=== PATIENT | male | born 1975 | race Caucasian/White ===

== ENCOUNTER → 2016-10-06 | Outpatient (CLI) | payer BC ==
[2016-10-06 10:41] LABS: ALBUMIN 4.4 GM/DL (3.2-5.2); ALBUMIN/GLOBULIN RATIO 1.42 (1.00-1.93); ALKALINE PHOSPHATASE 71 U/L (45-117); ALT/SGPT 115 U/L (12-78); ANION GAP 7 MEQ/L (8-16); AST/SGOT 44 U/L (15-37); BILIRUBIN,TOTAL 0.7 MG/DL (0.2-1.0); BLOOD UREA NITROGEN 16 MG/DL (7-18); CALCIUM LEVEL 9.3 MG/DL (8.5-10.1); CARBON DIOXIDE LEVEL 31 MEQ/L (21-32); CHLORIDE LEVEL 104 MEQ/L (98-107); CHOLESTEROL LEVEL 138 MG/DL (<200); GLOMERULAR FILTRATION RATE > 60.0 (>60); GLUCOSE, FASTING 88 MG/DL (70-105); POTASSIUM SERUM 4.2 MEQ/L (3.5-5.1); SODIUM LEVEL 142 MEQ/L (136-145); TOTAL PROTEIN 7.5 GM/DL (6.4-8.2); TRIGLYCERIDES LEVEL 120 MG/DL (<150)
== END ==
LOC: M WUC 08:24
PROVIDERS: ATTEND Family Medicine Addiction Medicine
DX: I10 Essential (primary) hypertension (principal)

== ENCOUNTER 2016-11-02 16:03 | Emergency (ER) | payer OTHER ==
[~2016-11-02] VITALS: Ht 193 cm; Wt 118.8 kg
[2016-11-02] MEDS ORDERED: AMLODIPINE (16:22)
[2016-11-02] MEDS ORDERED: ACETAMINOPHEN 325 MG TAB PO ONE (16:45)
[2016-11-02] MEDS ORDERED: KETOROLAC 30 MG/ML VIAL (J1885) IV ONE (16:45)
[2016-11-02 17:13] LABS: BASO % 0.4 % (0.0-1.0); EOS # 0.2 K/mm3 (0.0-0.50); EOS % 1.8 % (0.0-3.0); LARGE UNSTAINED CELL # 0.2 K/mm3 (0.0-0.4); LARGE UNSTAINED CELL % 2.9 % (0.0-4.0); LYMPH # 1.8 K/mm3 (1.5-4.5); LYMPH % 21.6 % (24.0-44.0); MEAN CORPUSCULAR HEMOGLOBIN 30.3 pg (27.0-33.0); MEAN CORPUSCULAR HGB CONC 34.2 g/dl (32.0-36.5); MEAN CORPUSCULAR VOLUME 88.6 fl (80.0-96.0); MONO # 0.5 K/mm3 (0.0-0.8); MONO % 6.4 % (0.0-5.0); NEUTROPHILS # 5.5 K/mm3 (1.8-7.7); NEUTROPHILS % 66.9 % (36.0-66.0); PLATELET COUNT, AUTOMATED 283 k/mm3 (150-450); RED CELL DISTRIBUTION WIDTH 12.9 % (11.5-14.5); WHITE BLOOD COUNT 8.3 K/mm3 (4.0-10.0)
[2016-11-02 17:40] LABS: ALBUMIN 4.1 GM/DL (3.2-5.2); ALBUMIN/GLOBULIN RATIO 1.21 (1.00-1.93); ALKALINE PHOSPHATASE 75 U/L (45-117); ALT/SGPT 132 U/L (12-78); ANION GAP 7 MEQ/L (8-16); AST/SGOT 43 U/L (15-37); BILIRUBIN,DIRECT 0.2 MG/DL (0.0-0.2); BILIRUBIN,TOTAL 0.6 MG/DL (0.2-1.0); BLOOD UREA NITROGEN 20 MG/DL (7-18); CALCIUM LEVEL 9.1 MG/DL (8.5-10.1); CARBON DIOXIDE LEVEL 28 MEQ/L (21-32); CHLORIDE LEVEL 107 MEQ/L (98-107); CREATININE FOR GFR 0.89 MG/DL (0.70-1.30); GLOMERULAR FILTRATION RATE > 60.0 (>60); GLUCOSE, FASTING 81 MG/DL (70-105); POTASSIUM SERUM 3.8 MEQ/L (3.5-5.1); SODIUM LEVEL 142 MEQ/L (136-145); TOTAL PROTEIN 7.5 GM/DL (6.4-8.2)
[2016-11-02] MEDS ORDERED: MORPHINE 4 MG/ML 1ML SYRINGE As Ordered ONE (18:10)
[2016-11-02] MEDS ORDERED: ONDANSETRON 4MG/2ML VIAL (J2405) As Ordered ONE (18:10)
[2016-11-02] MEDS ORDERED: ONDANSETRON 4MG/2ML VIAL (J2405) IV ONE (18:15)
[2016-11-02] MEDS ORDERED: NS 1,000 ML IV ONE (18:15)
[2016-11-02] MEDS ORDERED: MORPHINE 4 MG/ML 1ML SYRINGE IV ONE (18:15)
[2016-11-02] MEDS ORDERED: ISOVUE-370 76% 100ML VIAL (Q9967) As Ordered ONE (18:15)
[2016-11-02] MEDS ORDERED: NORCOTAB PO (19:03)
[2016-11-02] MEDS ORDERED: IBUP80TA PO (19:03)
--- NOTE | 2016-11-02 19:14 | REP ---
Anterior abdominal wall ultrasound: History: Question umbilical hernia. Findings: Scanning at the level of the umbilicus demonstrates a defect in the anterior abdominal wall measuring approximately 1.25 cm. There is echogenic inflamed appearing abdominal fat with in the subcutaneous region in the anterior abdominal wall. There is an area of sonographically complex of material within the umbilical hernia which may be non-peristalsing bowel. No blood flow could be detected on Doppler. Impression: Findings consistent with incarcerated umbilical hernia containing inflamed appearing abdominal fat and what appears to be a small loop of non-peristalsing bowel. This could not be reduced with transducer pressure . No Doppler flow could be observed. Signed by Toro Kapoor MD 11/02/2016 08:47 P
[2016-11-02 19:15] VITALS: BP 147/91
--- NOTE | 2016-11-02 19:28 | REP ---
CT abdomen pelvis with IV but without oral contrast: History: Umbilical pain. Findings: Preliminary digital portfolio specialist radiograph demonstrates a normal bowel gas pattern. There is an artifactual structure likely a pillow overlying the abdomen. The lung bases are clear. There is mild diffuse fatty infiltration of the liver. Some fat sparing is seen in the liver parenchyma adjacent the gallbladder. No adrenal lesion is seen. Spleen is unremarkable. Pancreas has a normal appearance. The kidneys enhance symmetrically and are morphologically intact. No retroperitoneal mass or adenopathy is seen. Small and large intestinal bowel loops are normal in the abdomen and pelvis. Seminal vesicles, urinary bladder and prostate are unremarkable. There is a 2.0 x 1.4 cm anterior abdominal wall defect at the umbilicus. This contains a small quantity of fat. Within the fat in the umbilical hernia there is evidence of edema or inflammation. There is slight streakiness in the subcutaneous fat adjacent to the umbilicus. There is no evidence of bowel involvement. No other abdominal wall defect is seen. No pelvic mass or adenopathy is observed. Bone window settings demonstrate no bony destructive lesion. Impression: Very small umbilical abdomen wall defect 2 cm in greatest diameter. The abdominal fat within this appears inflamed and there is some subcutaneous inflammation or edema superior and inferior to the umbilicus. Incarcerated hernia versus omphalitis. No bowel involvement. Signed by Toro Kapoor MD 11/02/2016 08:48 P
== END 2016-11-02 19:28 | disposition home or self-care (01) ==
LOC: M ED 17:36
DX: K40.30 Unilateral inguinal hernia, with obstruction, without gangrene, not specified as recurrent (principal); R10.9 Unspecified abdominal pain; I10 Essential (primary) hypertension; G47.33 Obstructive sleep apnea (adult) (pediatric); D86.0 Sarcoidosis of lung
CPT/HCPCS: 74177; 76705; 80048; 80076; 83605; 83690; 85025; 96374; 96375; 99282; J1885; J2405; Q9967

== ENCOUNTER → 2017-01-09 | Day surgery (SDC) | payer OTHER ==
[~2017-01-09] VITALS: Ht 193 cm; Wt 117.9 kg
[~2017-01-09] MED LIST: AMLO10CA PO; AMLO10TA2 PO; AMLODIPINE; BUPIVACAINE/EPIN 0.25% 30 ML VIAL As Ordered ONE; GLYCOPYRROLATE INJ 0.2 MG/ML 2 ML VIAL As Ordered ONE; HYDROmorphone HCL 1 MG/ML SYRINGE (J1170) IV PRN; IBUP80TA PO; KETOROLAC 60 MG/2 ML VIAL (J1885) As Ordered ONE; LIDOCAINE 2% INJ 100 MG/5 ML SDV (FOR ANES.) As Ordered ONE; LR 1,000 ML IV ONE; LR 1,000 ML IV SCH; MIDAZOLAM INJ 2 MG/2 ML VIAL (J2250) As Ordered ONE; MORPHINE 2 MG/ML 1ML SYRINGE IV PRN; NEOSTIGMINE 1MG/ML 5 ML SYRINGE (J2710) As Ordered ONE; NORCO, ANEXSIA 5/325MG TABLET (HYDROcodone/ACETAMINOPHEN) PO PRN; NORCOTAB PO; ONDANSETRON 4MG/2ML VIAL (J2405) As Ordered ONE; ONDANSETRON 4MG/2ML VIAL (J2405) IV PRN; PERCOCET 5MG/325MG TAB As Ordered ONE; PROPOFOL 200 MG/20 ML VIAL As Ordered ONE; ROCURONIUM BROMIDE 50 MG/5 ML VIAL/SYRINGE As Ordered ONE; ceFAZolin SOD 1 GM in D5W MINI-BAG PLUS 50 ML IV ONE; dexameTHASONE 4 MG/ML 1ML VIAL (J1100) As Ordered ONE; fentaNYL 100 MCG/2 ML INJECTION (J3010) IV PRN; fentaNYL 250 MCG/5 ML INJECTION (J3010) As Ordered ONE
--- NOTE | 2017-01-09 13:42 | RO ---
DATE OF PROCEDURE: 01/09/2017 PREOPERATIVE DIAGNOSIS: Symptomatic umbilical hernia. POSTPROCEDURE DIAGNOSIS: Symptomatic umbilical hernia. PROCEDURE: Umbilical hernia repair. SURGEON: Cas Arzate MD ANESTHESIA: General endotracheal anesthesia ESTIMATED BLOOD LOSS: Minimal. Fluids crystalloid. DESCRIPTION OF PROCEDURE: The patient was brought to the operating room and was given general anesthesia. After adequate anesthesia and preoperative antibiotics were given, the patient was prepped and draped in the sterile fashion. Next, a periumbilical incision was made with skin knife. Blunt dissection was carried down to the hernia itself. The hernia was dissected off the posterior aspect of the umbilicus and the hernia sac was entered. There was some preperitoneal fat within the hernia sac itself. No mass present and the peritoneum was not entered. The fascial defect was approximately 1 cm, at most 1.5 cm in size, which had nice strong fascia circumferentially. I felt that this could be closed primarily and this was closed with two [id number] #0 Ethilon sutures and a single interrupted #0 Ethilon suture between these two. The posterior aspect of the umbilicus was tacked down to the fascia with #3-0 Vicryl. #3-0 Vicryl was used to close the dermis and #4-0 Vicryl was used to approximate the skin. Steri-Strips and dry sterile dressing were applied. The patient was awakened, extubated, brought to the recovery room awake, alert, hemodynamically stable. Sponge and needle counts correct times two.
[2017-01-09] MEDS: PERCOCET 5MG/325MG TAB PO PRN ×2 (13:54→14:55)
[2017-01-09 16:30] VITALS: BP 131/77
== END ==
LOC: M SDC 10:00
PROVIDERS: ATTEND Surgery
DX: K42.9 Umbilical hernia without obstruction or gangrene (principal); I10 Essential (primary) hypertension; R06.2 Wheezing; D86.0 Sarcoidosis of lung; G47.30 Sleep apnea, unspecified; Z87.891 Personal history of nicotine dependence; Z79.899 Other long term (current) drug therapy
CPT/HCPCS: 49585; J0690; J1100; J1170; J1885; J2250; J2405; J2710; J3010

== ENCOUNTER → 2017-06-06 | Outpatient (REF) | payer BC ==
[~2017-06-06] MED LIST changes: -BUPIVACAINE/EPIN 0.25% 30 ML VIAL As Ordered ONE; -GLYCOPYRROLATE INJ 0.2 MG/ML 2 ML VIAL As Ordered ONE; -HYDROmorphone HCL 1 MG/ML SYRINGE (J1170) IV PRN; -KETOROLAC 60 MG/2 ML VIAL (J1885) As Ordered ONE; -LIDOCAINE 2% INJ 100 MG/5 ML SDV (FOR ANES.) As Ordered ONE; -LR 1,000 ML IV ONE; -LR 1,000 ML IV SCH; -MIDAZOLAM INJ 2 MG/2 ML VIAL (J2250) As Ordered ONE; -MORPHINE 2 MG/ML 1ML SYRINGE IV PRN; -NEOSTIGMINE 1MG/ML 5 ML SYRINGE (J2710) As Ordered ONE; -NORCO, ANEXSIA 5/325MG TABLET (HYDROcodone/ACETAMINOPHEN) PO PRN; -ONDANSETRON 4MG/2ML VIAL (J2405) As Ordered ONE; -ONDANSETRON 4MG/2ML VIAL (J2405) IV PRN; -PERCOCET 5MG/325MG TAB As Ordered ONE; -PROPOFOL 200 MG/20 ML VIAL As Ordered ONE; -ROCURONIUM BROMIDE 50 MG/5 ML VIAL/SYRINGE As Ordered ONE; -ceFAZolin SOD 1 GM in D5W MINI-BAG PLUS 50 ML IV ONE; -dexameTHASONE 4 MG/ML 1ML VIAL (J1100) As Ordered ONE; -fentaNYL 100 MCG/2 ML INJECTION (J3010) IV PRN; -fentaNYL 250 MCG/5 ML INJECTION (J3010) As Ordered ONE
[2017-06-06 12:33] LABS: ALBUMIN 4.6 GM/DL (3.2-5.2); ALBUMIN/GLOBULIN RATIO 1.53 (1.00-1.93); ALKALINE PHOSPHATASE 66 U/L (45-117); ALT/SGPT 61 U/L (12-78); ANION GAP 8 MEQ/L (8-16); AST/SGOT 24 U/L (7-37); BILIRUBIN,TOTAL 0.6 MG/DL (0.2-1.0); BLOOD UREA NITROGEN 26 MG/DL (7-18); CALCIUM LEVEL 8.8 MG/DL (8.5-10.1); CARBON DIOXIDE LEVEL 25 MEQ/L (21-32); CHLORIDE LEVEL 109 MEQ/L (98-107); CHOLESTEROL LEVEL 119 MG/DL (<200); CREATININE FOR GFR 0.83 MG/DL (0.70-1.30); GLOMERULAR FILTRATION RATE > 60.0 (>60); GLUCOSE, FASTING 98 MG/DL (70-105); POTASSIUM SERUM 4.3 MEQ/L (3.5-5.1); SODIUM LEVEL 142 MEQ/L (136-145); TOTAL PROTEIN 7.6 GM/DL (6.4-8.2); TRIGLYCERIDES LEVEL 95 MG/DL (<150)
== END ==
LOC: M LAB REF 11:58
PROVIDERS: ATTEND Family Medicine Addiction Medicine
DX: I10 Essential (primary) hypertension (principal)

== ENCOUNTER 2018-11-08 19:09 | Emergency (ER) | payer BC ==
[~2018-11-08] VITALS: Ht 193 cm; Wt 115.9 kg
[~2018-11-08 19:09] MED LIST changes: -AMLO10TA2 PO; +AMLO10TA5 PO; +HYDR-3715 PO; -NORCOTAB PO
[2018-11-08] MEDS ORDERED: ONDANSETRON 4 MG ORAL DISINTEGRATING TAB (Q0162 PER 1MG) As Ordered ONE (19:48)
[2018-11-08] MEDS ORDERED: ONDANSETRON 4 MG ORAL DISINTEGRATING TAB (Q0162 PER 1MG) PO ONE (20:00)
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
[2018-11-08] MEDS ORDERED: ONDA4TAB6 PO (21:32)
[2018-11-08 21:37] VITALS: BP 132/98
[2018-11-08] MEDS ORDERED: IBUPROFEN 600 MG TAB PO ONE (21:45)
[2018-11-08] MEDS ORDERED: ACETAMINOPHEN TAB 650MG DOSE (2X325MG) PO ONE (21:45)
== END 2018-11-08 22:00 | disposition home or self-care (01) ==
LOC: M ED 19:09
DX: S00.83XA Contusion of other part of head, initial encounter (principal); S02.2XXA Fracture of nasal bones, initial encounter for closed fracture; X58.XXXA Exposure to other specified factors, initial encounter; Y92.099 Unspecified place in other non-institutional residence as the place of occurrence of the external cause; Y93.9 Activity, unspecified; Y99.9 Unspecified external cause status; Z87.891 Personal history of nicotine dependence; Z79.899 Other long term (current) drug therapy
CPT/HCPCS: 70450; 70486; 99283; Q0162

== ENCOUNTER → 2019-01-24 | Outpatient (CLI) | payer BC ==
[~2019-01-24] MED LIST changes: -AMLO10CA PO; +AMLO10CA17 PO; +ONDA4TAB6 PO
[2019-01-24 09:40] LABS: BLOOD UREA NITROGEN 18 MG/DL (7-18); CARBON DIOXIDE LEVEL 29 MEQ/L (21-32); CHLORIDE LEVEL 109 MEQ/L (98-107); CHOLESTEROL LEVEL 119 MG/DL (<200); CHOLESTEROL RISK RATIO 3.051 (<5); CREATININE FOR GFR 0.88 MG/DL (0.70-1.30); GLOMERULAR FILTRATION RATE > 60.0 (>60); GLUCOSE, FASTING 88 MG/DL (70-100); HDL CHOLESTEROL 39 MG/DL (>40); LDL CHOLESTEROL 61 MG/DL (<100); MAGNESIUM LEVEL 2.2 MG/DL (1.8-2.4); NON-HDL-C 80 MG/DL; POTASSIUM SERUM 4.1 MEQ/L (3.5-5.1); SODIUM LEVEL 144 MEQ/L (136-145); TRIGLYCERIDES LEVEL 96 MG/DL (<150)
== END ==
LOC: M WUC 08:18
PROVIDERS: ATTEND Obstetrics & Gynecology
DX: Z13.6 Encounter for screening for cardiovascular disorders (principal); R00.2 Palpitations; I10 Essential (primary) hypertension

== ENCOUNTER 2021-04-03 17:57 | Emergency (ER) | payer BC ==
[~2021-04-03] VITALS: Ht 193 cm; Wt 125.0 kg
[~2021-04-03 17:57] MED LIST changes: -AMLO10TA5 PO; +AMLO1TAB25 PO
--- NOTE | 2021-04-03 19:13 | REP ---
INDICATION: SWELLING R/O DVT COMPARISON: None. TECHNIQUE: Yuen scale and color Doppler evaluation using linear high frequency transducer. FINDINGS: Ultrasound examination of the left lower extremity deep venous structures from the common femoral vein through the popliteal vein demonstrates normal compressibility flow and wave patterns in response to respiration and augmentation. There is no evidence for deep venous thrombosis. Evaluation of the calf veins is incomplete due to subcutaneous edema. Contralateral CFV is patent and normal. IMPRESSION: No evidence for deep venous thrombosis. <Electronically signed by Jose Luis Cline > 04/03/21 [id number]
[2021-04-03 20:02] LABS: BASO % 0.3 % (0.0-1.0); EOS # 0.1 10^3/uL (0.0-0.5); EOS % 1.5 % (0.0-3.0); HEMATOCRIT 43.4 % (42.0-52.0); HEMOGLOBIN 14.3 g/dl (13.5-17.5); LYMPH # 1.9 10^3/uL (1.5-5.0); LYMPH % 20.3 % (24.0-44.0); MEAN CORPUSCULAR HEMOGLOBIN 28.9 pg (27.0-33.0); MEAN CORPUSCULAR HGB CONC 32.9 g/dl (32.0-36.5); MEAN CORPUSCULAR VOLUME 87.7 fl (80.0-96.0); MONO # 0.9 10^3/uL (0.0-0.8); MONO % 10.2 % (2.0-8.0); NEUTROPHILS # 6.2 10^3/uL (1.5-8.5); NEUTROPHILS % 67.5 % (36.0-66.0); PLATELET COUNT, AUTOMATED 250 10^3/uL (150-450); RED BLOOD COUNT 4.95 10^6/uL (4.30-6.10); WHITE BLOOD COUNT 9.2 10^3/uL (4.0-10.0)
[2021-04-03] MEDS ORDERED: cefTRIAXone SOD 1 GM in D5W MINI-BAG PLUS 50 ML IV ONE (20:05)
[2021-04-03 20:23] LABS: ERYTHROCYTE SEDIMENTATION RATE 13 mm/hr (0-15)
[2021-04-03] MEDS ORDERED: CEPH500C PO (20:39)
[2021-04-03 20:55] VITALS: BP 133/79
[2021-04-04] MEDS ORDERED: TRIA1CR80 TOP (17:38)
== END 2021-04-03 20:56 | disposition home or self-care (01) ==
LOC: M ED 17:57
DX: L03.126 Acute lymphangitis of left lower limb (principal); I10 Essential (primary) hypertension; D86.9 Sarcoidosis, unspecified; Z79.899 Other long term (current) drug therapy
CPT/HCPCS: 85025; 85652; 86140; 93971; 96365; 99283; J0696

== ENCOUNTER 2021-04-04 13:15 | Emergency (ER) | payer BC ==
[~2021-04-04] VITALS: Ht 193 cm; Wt 126.7 kg
[~2021-04-04 13:15] MED LIST changes: +CEPH500C PO
[2021-04-04] MEDS ORDERED: TRIA1CR80 TOP (17:38)
[2021-04-04 17:58] VITALS: BP 136/86
== END 2021-04-04 18:00 | disposition home or self-care (01) ==
LOC: M ED 13:15
DX: D86.3 Sarcoidosis of skin (principal); I10 Essential (primary) hypertension; G47.33 Obstructive sleep apnea (adult) (pediatric); Z79.899 Other long term (current) drug therapy

== ENCOUNTER → 2023-02-08 | Outpatient (CLI) | payer BC ==
[~2023-02-08] MED LIST changes: +TRIA1CR80 TOP
[2023-02-08 15:05] LABS: ALBUMIN 4.3 G/DL (3.2-5.2); ALKALINE PHOSPHATASE 74 U/L (46-116); ALT/SGPT 78 U/L (7.0-40); AST/SGOT 31 U/L (<34); BILIRUBIN,TOTAL 0.5 MG/DL (0.3-1.2); BLOOD UREA NITROGEN 20 MG/DL (9-23); CALCIUM LEVEL 9.8 MG/DL (8.5-10.1); CARBON DIOXIDE LEVEL 25 MMOL/L (20-31); CHLORIDE LEVEL 107 MMOL/L (98-107); CREATININE FOR GFR 0.84 MG/DL (0.70-1.30); GLOMERULAR FILTRATION RATE > 60.0 (>60); GLUCOSE, FASTING 88 MG/DL (60-100); POTASSIUM SERUM 3.8 MMOL/L (3.5-5.1); SODIUM LEVEL 143 MMOL/L (136-145)
[2023-02-08 15:07] LABS: TOTAL 25(OH) VITAMIN D 25.4 NG/ML (20.0-100.0)
[2023-02-12 15:08] LABS: VITAMIN D 1,25 DIHYDROXY 56.2 pg/mL (24.8-81.5)
== END ==
LOC: M CARPUL 12:28
PROVIDERS: ATTEND Internal Medicine Critical Care Medicine
DX: D86.1 Sarcoidosis of lymph nodes (principal)

== ENCOUNTER → 2023-08-19 | Outpatient (CLI) | payer BC | LOC: M SLEEP 20:00 | PROVIDERS: ATTEND Internal Medicine Critical Care Medicine | DX: G47.33 Obstructive sleep apnea (adult) (pediatric) (principal) ==